=== PATIENT | male | born 1995 | race Caucasian/White ===

== ENCOUNTER 2017-11-06 09:57 | Emergency (ER) | payer SELFPAY ==
[2017-11-06 10:18] VITALS: BMI 22.9
[2017-11-06 10:22] VITALS: RESP 18; TEMP 98.6
--- NOTE | 2017-11-06 11:22 | ED PDOC ---
Arrival/HPI - General Chief Complaint: Dental Pain Time Seen by Provider: 11/06/17 10:29 Historian: Patient - History of Present Illness Narrative History of Present Illness (Text): 11/06/17 11:19 22-year-old male presents today with left lower dental pain 2 days. Patient states he has been having pain to the left lower molar for the past month. Just over the past 2 days the pain has significantly increased patient states he's been taking Tylenol and occasional ibuprofen without improvement in the symptoms. Patient denies fevers or chills. Denies trismus or drooling. No other complaints Time/Duration: Other (2 days) Symptom Onset: Gradual Symptom Course: Worsening Quality: Aching, Throbbing Severity Level: 10 Past Medical History - Provider Review Nursing Documentation Reviewed: Yes - Travel History Have you recently traveled outside US w/in the past 3 mons?: No - Infectious Disease Hx of Infectious Diseases: None - Tetanus Immunization Tetanus Immunization: Unknown - Pulmonary Hx Asthma: Yes - Psychiatric Hx Substance Use: No - Surgical History Hx Tonsillectomy: Yes - Anesthesia Hx Anesthesia: Yes Hx Anesthesia Reactions: No Hx Malignant Hyperthermia: No Family/Social History - Physician Review Nursing Documentation Reviewed: Yes Family/Social History: Unknown Family HX Smoking Status: Light Smoker < 10 Cigarettes Daily Hx Alcohol Use: Yes Frequency of alcohol use: Socially Hx Substance Use: No Allergies/Home Meds Allergies/Adverse Reactions: Allergies No Known Allergies Allergy (Verified 11/06/17 10:22) Review of Systems - Review of Systems Constitutional: absent: Fatigue, Fevers ENT: Other (dental pain). absent: Sore Throat, Sinus Congestion Respiratory: absent: SOB, Cough Cardiovascular: absent: Chest Pain, Palpitations Gastrointestinal: absent: Abdominal Pain, Nausea, Vomiting Genitourinary Male: absent: Dysuria Musculoskeletal: absent: Arthralgias, Back Pain, Neck Pain Skin: absent: Rash, Pruritis Neurological: absent: Headache, Dizziness Psychiatric: absent: Anxiety, Depression Physical Exam Vital Signs Reviewed: Yes Vital Signs Temp Pulse Resp BP Pulse Ox 11/06/17 11:54 75 18 157/109 H 100 11/06/17 11:21 79 18 148/89 98 11/06/17 10:18 98.6 F 82 18 154/102 H 98 Temperature: Afebrile Blood Pressure: Hypertensive Pulse: Regular Respiratory Rate: Normal Appearance: Positive for: Well-Appearing, Non-Toxic, Comfortable Pain Distress: None Mental Status: Positive for: Alert and Oriented X 3 - Systems Exam Head: Present: Atraumatic Conjunctiva: Present: Normal Ears: Present: Normal Mouth: Present: Moist Mucous Membranes, Normal Lips, Normal Tounge. No: Drooling, Trismus, Normal Teeth (multiple dental caries; + ttp over left lower molar; no erythema; no edema, + dental fracture noted to right lower molar; no palpable or visualized abscess. ) Pharnyx: Present: Normal. No: ERYTHEMA, EXUDATE, TONSILS ENLARGED, Peritonsilar Swelling, Uvular Deviation, Muffled/Hoarse Voice, Strider, Soft Palate/Uvular Edema Nose (External): Present: Atraumatic Nose (Internal): Present: Normal Inspection Neck: Present: Normal Range of Motion, Trachea Midline. No: Lymphadenopathy Respiratory/Chest: Present: Clear to Auscultation, Good Air Exchange. No: Respiratory Distress, Accessory Muscle Use Cardiovascular: Present: Regular Rate and Rhythm, Normal S1, S2. No: Murmurs Neurological: Present: GCS=15 Skin: Present: Warm, Dry, Normal Color. No: Rashes Psychiatric: Present: Alert, Oriented x 3 Medical Decision Making ED Course and Treatment: 11/06/17 11:21 Patient is nontoxic well-appearing in no distress with stable vital signs No trismus or drooling, moist mucous membranes Amoxicillin Toradol Patient reassessment: Patient is feeling better after medications. I advised follow-up with the dentist within the next 2 days. I advised immediate return is symptoms worsen persist or if new concerning symptoms develop advised patient of elevated blood pressure and need for f/u with PMD. Patient verbalizes understanding of discharge instructions and need for immediate followup. all aspects of this case were discussed the attending of record. Impression: Toothache Motrin every 6 hours as needed for pain Amoxicillin 1 tablet 3 times daily x 10 days Follow-up with the dentist within the next 2 days Follow up with the primary care physician. Return immediately if symptoms worsen persist or if new concerning symptoms develop [facility] [address] [facility] [phone] [place] [address] [phone] Reassessment Condition: Re-examined, Improved - Medication Orders Current Medication Orders: Discontinued Medications Amoxicillin (Amoxil 500 Mg Cap) 500 mg PO STAT STA PRN Reason: Protocol Stop: 11/06/17 11:15 Last Admin: 11/06/17 11:26 Dose: 500 mg Ketorolac Tromethamine (Toradol) 60 mg IM STAT STA Stop: 11/06/17 11:15 Last Admin: 11/06/17 11:26 Dose: 60 mg MAR Pain Assessment Document 11/06/17 11:26 GMD (Rec: 11/06/17 11:26 GMD [id number]) Pain Reassessment Is this a pain reassessment? No Presence of Pain Presence of Pain Yes Location Left, Right or Bilateral Left Description Radiation Location L dental pain IM Administration Charges Document 11/06/17 11:26 GMD (Rec: 11/06/17 11:26 GMD [id number]) Injection Site MAR Injection Site Right Gluteus Kip Charges for Administration # of IM Administrations 1 Disposition/Present on Arrival - Present on Arrival Any Indicators Present on Arrival: No History of DVT/PE: No History of Uncontrolled Diabetes: No Urinary Catheter: No History of Decub. Ulcer: No History Surgical Site Infection Following: None - Disposition Have Diagnosis and Disposition been Completed?: Yes Diagnosis: Toothache Disposition: HOME/ ROUTINE Disposition Time: 11:22 Patient Plan: Discharge Patient Problems: Current Active Problems Problem Status Onset Toothache Acute Condition: GOOD Discharge Instructions (ExitCare): Dental Pain Additional Instructions: Motrin every 6 hours as needed for pain Amoxicillin 1 tablet 3 times daily x 10 days Follow-up with the dentist within the next 2 days Follow up with the primary care physician. Return immediately if symptoms worsen persist or if new concerning symptoms develop [facility] [address] [place] [address] [place] [address] [phone] Prescriptions: Amoxicillin 500 mg PO TID #30 tab Ibuprofen [Motrin] 600 mg PO Q6H PRN #20 tab PRN Reason: pain/fever reduction Referrals: Mahesh Peña DMD [Non-Staff] - Follow up with primary Darinel Sanchez DMD [Staff Provider] - Follow up with primary Rosie Jj MD [Staff Provider] - Follow up with primary Forms: [employer] (Ethiopian), WORK NOTE, SCHOOL NOTE
[2017-11-06 11:55] VITALS: BP 157/109; PULSE 75; O2SAT 100
== END 2017-11-06 12:06 | disposition home or self-care (01) ==
LOC: ED 09:57
DX: K08.89 Other specified disorders of teeth and supporting structures (principal); F17.210 Nicotine dependence, cigarettes, uncomplicated
CPT/HCPCS: 96372; 99284; J1885

== ENCOUNTER 2018-01-12 12:53 | Emergency (ER) | payer MEDICAID ==
[2018-01-12 13:08] VITALS: BMI 22.3
[2018-01-12 13:19] VITALS: PULSE 89; RESP 18; TEMP 98.5
--- NOTE | 2018-01-12 13:57 | ED PDOC ---
Arrival/HPI - General Chief Complaint: Dental Pain Time Seen by Provider: 01/12/18 13:50 Historian: Patient, Parent EM Caveat: Acuity of Condition - History of Present Illness Narrative History of Present Illness (Text): 01/12/18 13:50 Pt is a 22 yr old male with PMH of dental abscess who presents tot the ED with a right upper molar tooth pain x 2 days. Pt states that the tooth was fractured months ago and has not been able to afford dental work but has experienced worsening pain since using a toothpick to poke at it. Reports taking ibuprofen 800 and 600mg PO but pain is still intense. Just received dental insurance and will see a dentist in the next day but needs to get pain relief so he can go to work. Time/Duration: 24 hours Symptom Onset: Gradual Symptom Course: Unchanged, Worsening Severity Level: 4 Activities at Onset: Rest Context: Home Past Medical History - Provider Review Nursing Documentation Reviewed: Yes - Travel History Have you recently traveled outside US w/in the past 3 mons?: No - Infectious Disease Hx of Infectious Diseases: None - Tetanus Immunization Tetanus Immunization: Unknown - Cardiac Hx Hypertension: Yes - Pulmonary Hx Asthma: Yes - Psychiatric Hx Substance Use: No - Surgical History Hx Tonsillectomy: Yes - Anesthesia Hx Anesthesia: Yes Hx Anesthesia Reactions: No Hx Malignant Hyperthermia: No Family/Social History - Physician Review Nursing Documentation Reviewed: Yes Family/Social History: Unknown Family HX Smoking Status: Light Smoker < 10 Cigarettes Daily Hx Alcohol Use: Yes Hx Substance Use: No Allergies/Home Meds Allergies/Adverse Reactions: Allergies No Known Allergies Allergy (Verified 11/06/17 10:22) Review of Systems - Review of Systems Constitutional: Normal. absent: Fatigue Eyes: Normal ENT: Normal, Other (mandiblular jaw pain surrounding fractured molar). absent: Hearing Changes Respiratory: Normal. absent: SOB, Cough Cardiovascular: Normal. absent: Chest Pain Gastrointestinal: Normal. absent: Abdominal Pain Genitourinary Male: Normal. absent: Dysuria Musculoskeletal: Normal Skin: Normal Neurological: Normal Endocrine: Normal Hemo/Lymphatic: Normal Psychiatric: Normal Physical Exam Vital Signs Reviewed: Yes Vital Signs Temp Pulse Resp BP Pulse Ox 01/12/18 14:55 18 139/78 98 01/12/18 12:53 98.5 F 89 18 141/94 H 100 Temperature: Afebrile Blood Pressure: Normal Pulse: Regular Respiratory Rate: Normal Appearance: Positive for: Well-Appearing, Non-Toxic, Comfortable Pain Distress: None Mental Status: Positive for: Alert and Oriented X 3 - Systems Exam Head: Present: Atraumatic, Normocephalic Pupils: Present: PERRL Extroacular Muscles: Present: EOMI Conjunctiva: Present: Normal Mouth: Present: Moist Mucous Membranes Neck: Present: Normal Range of Motion Respiratory/Chest: Present: Clear to Auscultation, Good Air Exchange. No: Respiratory Distress, Accessory Muscle Use Cardiovascular: Present: Regular Rate and Rhythm, Normal S1, S2. No: Murmurs Abdomen: No: Tenderness, Distention, Peritoneal Signs Back: Present: Normal Inspection Upper Extremity: Present: Normal Inspection. No: Cyanosis, Edema Lower Extremity: Present: Normal Inspection, NORMAL PULSES. No: Edema, CALF TENDERNESS Neurological: Present: GCS=15, CN II-XII Intact, Speech Normal, Motor Func Grossly Intact Skin: Present: Warm, Dry, Normal Color. No: Rashes Lymphatic: No: Cervical Adenopathy Psychiatric: Present: Alert, Oriented x 3, Normal Insight, Normal Concentration Medical Decision Making ED Course and Treatment: 01/12/18 13:57 Impression Pt is a 22 yr old male with PMH of dental abscess who presents tot the ED with a right upper molar tooth pain x 2 days. On exam, left upper molar fractured with large crevice and surrounding erythema , no significant gingivitis. 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 No Sleep Is patient sleeping during reassessment? No Presence of Pain Presence of Pain Yes IM Administration Charges Document 01/12/18 14:17 EQ (Rec: 01/12/18 14:17 EQ [id number]) Charges for Administration # of IM Administrations 1 Disposition/Present on Arrival - Present on Arrival Any Indicators Present on Arrival: Yes History of DVT/PE: No History of Uncontrolled Diabetes: No Urinary Catheter: No History of Decub. Ulcer: No History Surgical Site Infection Following: None - Disposition Have Diagnosis and Disposition been Completed?: Yes Diagnosis: Abscessed tooth, Pain due to dental caries Disposition: HOME/ ROUTINE Disposition Time: 14:14 Patient Plan: Discharge Condition: GOOD Discharge Instructions (ExitCare): Tooth Abscess (DC), Dental Pain Additional Instructions: RIA JAQUEZ, thank you for letting us take care of you today. Your provider was Jyoti Díaz MD, YONATAN Thakkar and you were treated for TOOTHACHE. The emergency medical care you received today was directed at your acute symptoms. If you were prescribed any medication, please fill it and take as directed. It may take several days for your symptoms to resolve. Return to the Emergency Department if your symptoms worsen, do not improve, or if you have any other problems. Please see your dentist in the next 24 hours to have the tooth evaluated and treated Take Naproxen every 12 hrs for pain and inflammation and use Anbesol topically. Please contact your doctor or call one of the physicians/clinics you have been referred to that are listed on the Patient Visit Information form that is included in your discharge packet. Bring any paperwork you were given at discharge with you along with any medications you are taking to your follow up visit. Our treatment cannot replace ongoing medical care by a primary care provider outside of the emergency department. Thank you for allowing the [facility] team to be part of your care today. Prescriptions: Cephalexin [Keflex] 250 mg PO Q6 3 Days #12 cap Naproxen [Naprosyn] 500 mg PO Q12 5 Days #10 tablet Forms: [employer] (Swedish), WORK NOTE
[2018-01-12 15:05] VITALS: BP 139/78; O2SAT 98
== END 2018-01-12 14:55 | disposition home or self-care (01) ==
LOC: ED 12:53
DX: K02.9 Dental caries, unspecified (principal); K04.7 Periapical abscess without sinus
CPT/HCPCS: 96372; 99282; J1885

== ENCOUNTER 2018-03-25 16:54 | Emergency (ER) | payer MEDICAID, OTHER ==
[2018-03-25 16:55] VITALS: BMI 22.3
[2018-03-25 17:34] VITALS: TEMP 98.8
[2018-03-25] MEDS ORDERED: Albuterol 0.083% Inhal Sol (2.5 mg/3 mL) UD INH STA (17:55)
--- NOTE | 2018-03-25 18:19 | RAD ---
Date of service: 03/25/2018 HISTORY: sob COMPARISON: No prior. FINDINGS: LUNGS: No active pulmonary disease. PLEURA: No significant pleural effusion identified, no pneumothorax apparent. CARDIOVASCULAR: Normal. OSSEOUS STRUCTURES: No significant abnormalities. VISUALIZED UPPER ABDOMEN: Normal. OTHER FINDINGS: None. IMPRESSION: No active disease.
--- NOTE | 2018-03-25 18:22 | ED PDOC ---
Arrival/HPI - General Chief Complaint: Shortness Of Breath Time Seen by Provider: 03/25/18 16:58 - History of Present Illness Narrative History of Present Illness (Text): 03/25/18 17:56 22 y/o M w/ h/o asthma presenting with 3 days of shortness of breath and chest tightness. Per the patient, the patient had been experiencing non-productive cough, rhinorrhea, and intermittent chills. He reports attempting to use his rescue inhaler to alleviate symptoms but was unsuccessful. He denies seeing his PCP for his symptoms. He denies chest pain, headache, abdominal pain, weakness, numbness, back pain, or weakness. Time/Duration: Other (3 days) Symptom Onset: Gradual Symptom Course: Worsening Quality: Tightness Severity Level: Moderate Activities at Onset: Rest Context: Home Past Medical History - Provider Review Nursing Documentation Reviewed: Yes - Travel History Have you recently traveled outside [place] w/in the past 3 mons?: No - Infectious Disease Hx of Infectious Diseases: None - Tetanus Immunization Tetanus Immunization: Unknown - Cardiac Hx Hypertension: Yes - Pulmonary Hx Asthma: Yes - Psychiatric Hx Substance Use: No - Surgical History Hx Tonsillectomy: Yes - Anesthesia Hx Anesthesia: Yes Hx Anesthesia Reactions: No Hx Malignant Hyperthermia: No Family/Social History Family/Social History: Unknown Family HX Smoking Status: Light Smoker < 10 Cigarettes Daily Hx Alcohol Use: Yes Hx Substance Use: No Allergies/Home Meds Allergies/Adverse Reactions: Allergies No Known Allergies Allergy (Verified 11/06/17 10:22) Review of Systems - Physician Review All systems were reviewed & negative as marked: Yes - Review of Systems Constitutional: Fevers, Night Sweats ENT: Rhinorrhea. absent: Sinus Congestion Respiratory: SOB, Cough, Sputum, Wheezing Cardiovascular: absent: Chest Pain, Palpitations, Edema, LAY Gastrointestinal: absent: Abdominal Pain, Constipation, Diarrhea Genitourinary Male: absent: Dysuria, Hematuria Skin: absent: Rash Neurological: absent: Headache, Dizziness Psychiatric: Anxiety Physical Exam Vital Signs Temp Pulse Resp BP Pulse Ox 03/25/18 19:50 80 20 117/64 97 03/25/18 17:18 98.8 F 98 H 18 114/81 100 03/25/18 16:55 98.8 F 98 H 18 114/81 100 Temperature: Afebrile Blood Pressure: Normal Pulse: Regular Respiratory Rate: Normal Appearance: Positive for: Well-Appearing, Non-Toxic, Comfortable Pain Distress: Mild Mental Status: Positive for: Alert and Oriented X 3 - Systems Exam Head: Present: Atraumatic, Normocephalic Mouth: Present: Moist Mucous Membranes Respiratory/Chest: Present: Wheezes (inspiratory and expiratory wheezes), Tachypneic. No: Clear to Auscultation, Respiratory Distress, Decreased Breath Sounds, Rhonchi Cardiovascular: Present: Regular Rate and Rhythm, Normal S1, S2, Tachycardic Abdomen: Present: Normal Bowel Sounds. No: Tenderness, Distention Neurological: Present: GCS=15, CN II-XII Intact, Speech Normal Skin: Present: Warm, Dry, Normal Color Psychiatric: Present: Alert, Oriented x 3, Normal Insight, Normal Concentration Medical Decision Making ED Course and Treatment: 03/25/18 19:47 Impression 22 y/o M w/ h/o asthma presenting with SOB Differential Diagnoses Include But Are Not Limited To: Asthma exacerbation Bronchitis PNA Plan --Labs --Duonebs --CXR --Prednisone --Reassess & disposition Progress Notes 03/25/18 19:50 Labs reviewed with no leukocytosis noted. Patient reassessed and feels much better after nebulizer treatment. CXR unremarkable. Scripts given. Importance of appropriate nebulizer and rescue inhaler use provided to patient. He demonstrates understanding and will follow up with his PCP. He is stable for discharge. - Lab Interpretations Lab Results: 03/25/18 17:45 03/25/18 17:45 Lab Results 03/25/18 18:52: Urine Color Yellow, Urine Appearance Clear, Urine pH 8.5, Ur Specific [place] 1.015, Urine Protein Trace H, Urine Glucose (UA) Negative, Urine Ketones Trace H, Urine Blood Negative, Urine Nitrate Negative, Urine Bilirubin Negative, Urine Urobilinogen 2.0 H, Ur Leukocyte Esterase Negative, Urine RBC 0 - 2, Urine WBC 0 - 2, Ur Epithelial Cells None, Urine Bacteria Many 03/25/18 17:45: Sodium 145, Potassium 4.2, Chloride 104, Carbon Dioxide 27, Anion Gap 18, BUN 10, Creatinine 0.7 L, Est GFR ( Amer) > 60, Est GFR ( Non-Af Amer) > 60, Random Glucose 112 H, Calcium 10.2, Total Bilirubin 0.6, AST 27, ALT 23, Alkaline Phosphatase 79, Total Protein 8.1, Albumin 4.8, Globulin 3.3, Albumin/Globulin Ratio 1.5 03/25/18 17:45: WBC 10.6, RBC 5.20, Hgb 16.0, Hct 43.9, MCV 84.4, MCH 30.8, MCHC 36.4, RDW 12.6, Plt Count 212, MPV 11.0, Gran % 67.7, Lymph % (Auto) 22.6, Randall % (Auto) 6.5 H, Eos % (Auto) 2.9, Baso % (Auto) 0.3, Gran # 7.14 H, Lymph # (Auto) 2.4, Randall # (Auto) 0.7 H, Eos # (Auto) 0.3, Baso # (Auto) 0.03 - RAD Interpretation Radiology Orders: 03/25/18 17:28 CHEST PORTABLE [RAD] Stat - Medication Orders Current Medication Orders: Discontinued Medications Albuterol Sulfate (Albuterol 0.083% Inhal Margret (2.5 Mg/3 Ml) Ud) 2.5 mg INH STAT STA Stop: 03/25/18 17:56 Last Admin: 03/25/18 18:14 Dose: 2.5 mg Prednisone (Prednisone Tab) 40 mg PO STAT STA Stop: 03/25/18 19:03 Last Admin: 03/25/18 19:24 Dose: 40 mg Disposition/Present on Arrival - Present on Arrival Any Indicators Present on Arrival: No History of DVT/PE: No History of Uncontrolled Diabetes: No Urinary Catheter: No History of Decub. Ulcer: No History Surgical Site Infection Following: None - Disposition Have Diagnosis and Disposition been Completed?: Yes Diagnosis: Asthma attack Disposition: HOME/ ROUTINE Disposition Time: 19:40 Patient Plan: Discharge Condition: IMPROVED Discharge Instructions (ExitCare): Asthma, Adult (DC) Prescriptions: Albuterol HFA [Ventolin HFA 90 mcg/actuation (8 g)] 2 puff IH [id number] #1 puff Albuterol 0.083% [Albuterol 0.083% Inhal Margret (2.5 mg/3 ml) UD] 2.5 mg IH Q6H 3 Days #3 neb Ipratropium 0.02% [Atrovent] 0.02 % IH Q6H 3 Days #3 neb Methylprednisolone [Medrol Dose Pack (21 tabs)] 4 mg PO DAILY #21 mg Referrals: Margot Mcbride MD [Medical Doctor] - Follow up with primary [facility] [place] - Follow up with primary Forms: [employer] (French), WORK NOTE
[2018-03-25 18:24] LABS: ALB/GLOB RATIO 1.5 (1.1-1.8); ALBUMIN 4.8 g/dL (3.0-4.8); ALT/SGPT 23 U/L (7-56); AST/SGOT 27 U/L (17-59); BLOOD UREA NITROGEN 10 mg/dL (7-21); CALCIUM 10.2 mg/dL (8.4-10.5); GFR NON-AFRICAN AMERICAN > 60
[2018-03-25 18:36] LABS: BASO # 0.03 K/mm3 (0.0-2.0); BASO % 0.3 % (0.0-3.0); EOS # 0.3 (0.0-0.7); EOS % 2.9 % (1.5-5.0); GRAN # 7.14 (1.4-6.5); GRAN % 67.7 % (50.0-68.0); LYMPH # 2.4 (1.2-3.4); LYMPH % 22.6 % (22.0-35.0); MEAN CELL VOLUME 84.4 fl (80.0-105.0); MEAN CORPUSCULAR HEMOGLOBIN 30.8 pg (25.0-35.0); MEAN CORPUSCULAR HGB CONC 36.4 g/dl (31.0-37.0); MONO # 0.7 (0.1-0.6); MONO % 6.5 % (1.0-6.0); RBC 5.2 10^6/uL (3.5-6.1); RED CELL DISTRIBUTION WIDTH 12.6 % (11.5-14.5); WHITE BLOOD COUNT 10.6 10^3/ul (4.5-11.0)
[2018-03-25 18:59] LABS: PH,URINE 8.5 (4.7-8.0); URINE BILIRUBIN NEGATIVE (NEGATIVE); URINE BLOOD NEGATIVE (NEGATIVE); URINE GLUCOSE (UA) NEGATIVE (NEGATIVE); URINE LEUKOCYTE ESTERASE NEGATIVE Leu/uL (NEGATIVE); URINE PROTEIN TRACE mg/dL (<30 mg/dL)
[2018-03-25 19:00] LABS: URINE APPEARANCE CLEAR (CLEAR); URINE COLOR YELLOW (YELLOW)
[2018-03-25 19:10] LABS: URINE BACTERIA MANY (NEG); URINE RBC 0 - 2 /hpf (0-2); URINE WBC 0 - 2 /hpf (0-6)
[2018-03-25 19:51] VITALS: BP 117/64; PULSE 80; RESP 20; O2SAT 97
--- NOTE | 2018-03-26 10:45 | CARD ---
APPROVED REPORT Date of service: 03/25/2018 EKG Measurement Heart [id number] <Conclusion> Normal sinus rhythm Minimal voltage criteria for LVH, may be normal variant Normal ECG
== END 2018-03-25 19:50 | disposition home or self-care (01) ==
LOC: ED 16:54
DX: J45.909 Unspecified asthma, uncomplicated (principal); I10 Essential (primary) hypertension; F17.210 Nicotine dependence, cigarettes, uncomplicated